=== PATIENT | female | born 1970 | race Caucasian/White ===

== ENCOUNTER 2024-03-08 20:11 | Emergency (ER) | payer SELFPAY ==
[~2024-03-08 20:11] MED LIST: Iopamidol-370 76% 500 ML MDV (1 ML CHARGE) ONE
[2024-03-08 21:42] LABS: #Basophils 0.07 10x3/uL (0.0-0.2); %Basophils 0.9 % (0.0-1.0); %Eosinophils 2.4 % (0.0-10.0); %Monocytes 6.6 % (0.0-10.0); %Neutrophils 44.8 % (42.0-75.0); Hematocrit 38.4 % (36.0-47.0); Hemoglobin 12.8 g/dL (12.0-16.0); Mean Corpuscular HGB CONC 33.3 g/dL (32.0-36.0); Mean Platelet Volume 9.7 fL (7.4-10.4); Platelet Count 219 10x3/uL (130-400); RBC Distribution Width 13.7 % (11.5-14.5); Red Blood Cell (RBC) Count 4.13 mill/uL (4.20-5.40)
[2024-03-08 22:00] LABS: ALT (SGPT) 9 U/L (8-55); AST (SGOT) 12 U/L (5-34); Albumin 4.1 g/dL (3.5-5.0); Alkaline Phosphatase 63 U/L (40-110); Anion Gap 11 mmol/L (10-20); BUN (Urea Nitrogen) 19 mg/dL (9.8-20.1); Bilirubin, Total 0.4 mg/dL (0.2-1.2); Calc. Creatinine Clearance 0 mL/min (70-130); Calcium 9.2 mg/dL (7.8-10.44); Carbon Dioxide 27 mmol/L (22-29); Chloride 105 mmol/L (98-107); Estimated GFR 55; Globulin 3.4 g/dL (2.4-3.5); Glucose 94 mg/dL (70-105); Lipase 36 U/L (8-78); Potassium 3.8 mmol/L (3.5-5.1); Protein, Total 7.5 g/dL (6.0-8.3); Sodium 139 mmol/L (136-145)
[2024-03-08 22:11] LABS: Bacteria/HPF None Seen HPF (None Seen); Bilirubin Negative (Negative); Blood, Urine Negative (Negative); CAUTI Indications for Culture Dysuria,urgency,freq; Clarity Clear (Clear); Glucose, Urine (Dipstick) Normal (Negative); Ketone, Urine Negative (Negative); Leukocyte Negative Leu/uL (Negative); Nitrite Negative (Negative); Protein, Urine (Dipstick) Negative (Neg-Trace); RBC/HPF 0-3 HPF (0-3); Specific Gravity, Urine 1.011 (1.002-1.036); Squamous Epithelial 0-3 HPF (0-3); Urobilinogen Normal mg/dL (Less than 2); WBC/HPF 0-3 HPF (0-3); pH, Urine 6.5 (5.0-9.0)
[2024-03-08 22:23] LABS: Urine Culture Reflex No No
[2024-03-08] MEDS ORDERED: Ketorolac Tromethamine 30 MG (1 mL) VIAL ONE (23:42)
== END 2024-03-09 00:44 | disposition home or self-care (01) ==
LOC: ERS 20:11
DX: K59.00 Constipation, unspecified (principal); R10.9 Unspecified abdominal pain; J44.89 Other specified chronic obstructive pulmonary disease
CPT/HCPCS: 36415; 74177; 80053; 81001; 83690; 85025; 96374; J1885; Q9967

== ENCOUNTER 2024-03-18 11:58 | Emergency (ER) | payer SELFPAY ==
[2024-03-18 13:34] LABS: #Basophils 0.07 10x3/uL (0.0-0.2); %Eosinophils 2.2 % (0.0-10.0); %Lymphocytes 34.3 % (21.0-51.0); %Monocytes 4.9 % (0.0-10.0); %Neutrophils 57.3 % (42.0-75.0); Hematocrit 44.7 % (36.0-47.0); Hemoglobin 14.4 g/dL (12.0-16.0); Mean Corpuscular HGB CONC 32.2 g/dL (32.0-36.0); Mean Corpuscular Hemoglobin 30.8 pg (27.0-31.0); Mean Corpuscular Volume 95.5 fL (78.0-98.0); Mean Platelet Volume 9.5 fL (7.4-10.4); Platelet Count 233 10x3/uL (130-400); RBC Distribution Width 13.9 % (11.5-14.5); Red Blood Cell (RBC) Count 4.68 mill/uL (4.20-5.40)
[2024-03-18 13:55] LABS: Troponin I Less than 0.010 ng/mL (< 0.028)
[2024-03-18 13:57] LABS: Lipase 97 U/L (8-78)
[2024-03-18 14:00] LABS: Acetaminophen Less than 10 mcg/mL (Less than 10); Alcohol Less than 10.0 mg/dL (Less than 10); Salicylate Less than 8.0 mg/dL (Less than 8.0)
[2024-03-18 14:02] LABS: ALT (SGPT) 31 U/L (8-55); AST (SGOT) 16 U/L (5-34); Albumin 4.3 g/dL (3.5-5.0); Alkaline Phosphatase 75 U/L (40-110); Anion Gap 11 mmol/L (10-20); BUN (Urea Nitrogen) 11 mg/dL (9.8-20.1); Bilirubin, Total 0.9 mg/dL (0.2-1.2); Calc. Creatinine Clearance 0 mL/min (70-130); Calcium 9.9 mg/dL (7.8-10.44); Carbon Dioxide 31 mmol/L (22-29); Chloride 105 mmol/L (98-107); Estimated GFR 88; Globulin 3.8 g/dL (2.4-3.5); Glucose 106 mg/dL (70-105); Potassium 3.9 mmol/L (3.5-5.1); Protein, Total 8.1 g/dL (6.0-8.3); Sodium 143 mmol/L (136-145)
[2024-03-18 14:53] LABS: Bacteria/HPF None Seen HPF (None Seen); Bilirubin Negative (Negative); Blood, Urine Negative (Negative); CAUTI Indications for Culture Pelvic or flank pain; Clarity Clear (Clear); Glucose, Urine (Dipstick) Normal (Negative); Ketone, Urine Negative (Negative); Leukocyte Negative Leu/uL (Negative); Nitrite Negative (Negative); Protein, Urine (Dipstick) Negative (Neg-Trace); RBC/HPF 0-3 HPF (0-3); Specific Gravity, Urine 1.004 (1.002-1.036); Squamous Epithelial None Seen HPF (0-3); Urobilinogen Normal mg/dL (Less than 2); WBC/HPF 0-3 HPF (0-3); pH, Urine 6.5 (5.0-9.0)
[2024-03-18 14:56] LABS: Urine Culture Reflex No No
[2024-03-18 15:00] LABS: Amphetamine Not Detected (NotDetected); Barbiturates Screen Not Detected (NotDetected); Benzodiazepine Screen Not Detected (NotDetected); Cocaine Metabolite Screen Not Detected (NotDetected); Methadone Not Detected (NotDetected); Methamphetamine Not Detected (NotDetected); Opiate Screen Not Detected (NotDetected); Oxycodone Screen Not Detected (NotDetected); Phencyclidine (PCP) Not Detected (NotDetected); THC/Cannabinoid Screen Not Detected (NotDetected); Tricyclic Screen Not Detected (NotDetected)
== END 2024-03-18 16:42 | disposition home or self-care (01) ==
LOC: ERS 11:58
DX: I27.20 Pulmonary hypertension, unspecified (principal); R06.00 Dyspnea, unspecified
CPT/HCPCS: 36415; 71046; 80053; 80306; 80307; 81001; 83690; 84443; 84484; 85025; 87428; 93005

== ENCOUNTER 2024-03-18 19:47 | Inpatient (IN) | payer SELFPAY ==
[2024-03-18 23:37] LABS: #Basophils 0.08 10x3/uL (0.0-0.2); %Basophils 1.1 % (0.0-1.0); %Eosinophils 3.2 % (0.0-10.0); %Monocytes 6.8 % (0.0-10.0); %Neutrophils 36.6 % (42.0-75.0); Hematocrit 38.4 % (36.0-47.0); Hemoglobin 12.9 g/dL (12.0-16.0); Mean Corpuscular HGB CONC 33.6 g/dL (32.0-36.0); Mean Corpuscular Hemoglobin 31.5 pg (27.0-31.0); Mean Corpuscular Volume 93.9 fL (78.0-98.0); Mean Platelet Volume 9.5 fL (7.4-10.4); Platelet Count 221 10x3/uL (130-400); RBC Distribution Width 13.8 % (11.5-14.5); Red Blood Cell (RBC) Count 4.09 mill/uL (4.20-5.40)
[2024-03-19 00:02] LABS: Bilirubin Negative (Negative); Blood, Urine Negative (Negative); CAUTI Indications for Culture Pelvic or flank pain; Clarity Clear (Clear); Glucose, Urine (Dipstick) Normal (Negative); Ketone, Urine Negative (Negative); Leukocyte Negative Leu/uL (Negative); Nitrite Negative (Negative); Protein, Urine (Dipstick) Negative (Neg-Trace); RBC/HPF 0-3 HPF (0-3); Specific Gravity, Urine 1.007 (1.002-1.036); Squamous Epithelial None Seen HPF (0-3); WBC/HPF 0-3 HPF (0-3); pH, Urine 6.5 (5.0-9.0)
[2024-03-19 00:03] LABS: Bacteria/HPF Rare-Few HPF (None Seen)
[2024-03-19 00:04] LABS: Urine Culture Reflex No No
[2024-03-19 00:05] LABS: ALT (SGPT) 25 U/L (8-55); AST (SGOT) 13 U/L (5-34); Albumin 3.8 g/dL (3.5-5.0); Alkaline Phosphatase 73 U/L (40-110); Anion Gap 13 mmol/L (10-20); BUN (Urea Nitrogen) 14 mg/dL (9.8-20.1); Bilirubin, Total 0.4 mg/dL (0.2-1.2); Calc. Creatinine Clearance 0 mL/min (70-130); Calcium 9.3 mg/dL (7.8-10.44); Carbon Dioxide 30 mmol/L (22-29); Chloride 104 mmol/L (98-107); Estimated GFR 82; Globulin 3.5 g/dL (2.4-3.5); Glucose 99 mg/dL (70-105); Protein, Total 7.3 g/dL (6.0-8.3); Sodium 143 mmol/L (136-145)
[2024-03-19 00:08] LABS: Troponin I Less than 0.010 ng/mL (< 0.028)
[2024-03-19] MEDS ORDERED: Ondansetron PF 4 MG/2 ML Vial ONE (00:17)
[2024-03-19] MEDS ORDERED: Morphine 4 MG/ML VIAL ONE ×2 (00:17→03:15)
[2024-03-19] MEDS ORDERED: Enoxaparin 80 MG (0.8 mL) SYRINGE ONE (01:23)
[2024-03-19 02:31] LABS: INR-International Normal Ratio 1.7; PTT 32.4 sec (22.9-36.1); Prothrombin Time 19.7 sec (12.0-14.7)
[2024-03-19] MEDS ORDERED: Ondansetron ODT 4 MG TAB PO PRN (03:37)
[2024-03-19] MEDS ORDERED: Senokot S 8.6-50 MG TAB PO PRN (03:37)
[2024-03-19] MEDS ORDERED: Bisacodyl 5 MG TAB PO PRN (03:37)
[2024-03-19] MEDS ORDERED: Ipratropium/Albuterol 3 ML NEB NEB PRN (03:42)
[2024-03-19 08:05] VITALS: BMI 24.6
[2024-03-19] MEDS ORDERED: Ibuprofen 200 MG TAB ONE (09:34)
[2024-03-19 09:36] LABS: INR-International Normal Ratio 1.2; PTT 35.7 sec (22.9-36.1); Prothrombin Time 15.4 sec (12.0-14.7)
[2024-03-19] MEDS ORDERED: Enoxaparin 100 MG (1 mL) SYRINGE ONE (09:38)
[2024-03-19 09:46] LABS: D-Dimer Test Less than 0.27 mcg/mL (0.27-0.43)
[2024-03-19] MEDS: Ibuprofen 200 MG TAB PO SCH (09:46)
[2024-03-19] MEDS: Enoxaparin 100 MG (1 mL) SYRINGE SC SCH (09:46)
[2024-03-19] MEDS: Sodium Chloride 0.9% 1,000 ML IV SCH (09:48)
[2024-03-19 11:49] LABS: HBCM Index 0.16 S/CO (0-0.79); HBsAg Index 0.26 S/CO (0-0.99); Hep A IgM AB NONREACTIVE (NonReactive); Hep A IgM S/CO 0.13 S/CO (0-0.79); Hep B Surf Ag NONREACTIVE S/CO (NonReactive); Hep C IgG Ab NONREACTIVE S/CO (NonReactive); Hep C Index 0.07 S/CO (0-0.79); Hepatitis B Core IgM Abs NONREACTIVE S/CO (NonReactive)
[2024-03-19] MEDS ORDERED: Acetaminophen 500 MG TAB ONE (12:22)
[2024-03-19] MEDS: Acetaminophen 325 MG TAB PO PRN (12:28)
[2024-03-19 13:35] LABS: Cardiolipin IgA Ab 3.6 APL-U/mL (<14 Negative); Cardiolipin IgG Ab 1.6 GPL-U/mL (<10 Negative); Cardiolipin IgM Ab 1.1 MPL-U/mL (<10 Negative); EliA APS New Method **** NEW METHOD ****
[2024-03-19] MEDS: Sildenafil Citrate 20 MG TAB PO SCH (17:15)
[2024-03-19] MEDS: Divalproex Sodium 250 MG (DR) TAB PO SCH (20:25)
[2024-03-19] MEDS: Ziprasidone 20 MG CAP PO SCH (20:26)
[2024-03-19] MEDS: Famotidine 20 MG TAB PO SCH (20:27)
[2024-03-20 04:03] LABS: #Basophils 0.07 10x3/uL (0.0-0.2); %Basophils 1.3 % (0.0-1.0); %Eosinophils 3.5 % (0.0-10.0); Hematocrit 40.6 % (36.0-47.0); Hemoglobin 12.9 g/dL (12.0-16.0); Mean Corpuscular HGB CONC 31.8 g/dL (32.0-36.0); Mean Corpuscular Hemoglobin 31.2 pg (27.0-31.0); Mean Corpuscular Volume 98.3 fL (78.0-98.0); Mean Platelet Volume 9.6 fL (7.4-10.4); Platelet Count 181 10x3/uL (130-400); RBC Distribution Width 13.7 % (11.5-14.5); Red Blood Cell (RBC) Count 4.13 mill/uL (4.20-5.40)
[2024-03-20 04:05] LABS: ALT (SGPT) 21 U/L (8-55); AST (SGOT) 11 U/L (5-34); Albumin 3.5 g/dL (3.5-5.0); Alkaline Phosphatase 66 U/L (40-110); Anion Gap 13 mmol/L (10-20); BUN (Urea Nitrogen) 17 mg/dL (9.8-20.1); Bilirubin, Total 0.5 mg/dL (0.2-1.2); Calc. Creatinine Clearance 87 mL/min (70-130); Calcium 9.4 mg/dL (7.8-10.44); Carbon Dioxide 28 mmol/L (22-29); Chloride 107 mmol/L (98-107); Estimated GFR 67; Globulin 3.1 g/dL (2.4-3.5); Glucose 93 mg/dL (70-105); Potassium 4.8 mmol/L (3.5-5.1); Protein, Total 6.6 g/dL (6.0-8.3); Sodium 143 mmol/L (136-145)
[2024-03-20] MEDS: Loratadine 10 MG TAB PO SCH (09:04)
[2024-03-20] MEDS: FLU (Fluarix Triv) TS24-25(6MOS UP)/PF 45 MCG/0.5 ML Syringe IM ONE (09:10)
[2024-03-20] MEDS: Loperamide HCl 2 MG CAP PO PRN (11:02)
[2024-03-20 13:35] VITALS: BMI 24.6
[2024-03-20] MEDS: Sertraline 100 MG TAB PO SCH (21:58)
[2024-03-20] MEDS: Enoxaparin 80 MG (0.8 mL) SYRINGE SC SCH (21:59)
[2024-03-20] MEDS: Acetaminophen 500 MG TAB PO PRN (22:18)
[2024-03-21 05:52] LABS: #Basophils 0.05 10x3/uL (0.0-0.2); %Basophils 0.9 % (0.0-1.0); %Eosinophils 4.2 % (0.0-10.0); %Lymphocytes 34.4 % (21.0-51.0); %Neutrophils 51.3 % (42.0-75.0); Hematocrit 38.9 % (36.0-47.0); Hemoglobin 12.5 g/dL (12.0-16.0); Mean Corpuscular HGB CONC 32.1 g/dL (32.0-36.0); Mean Corpuscular Hemoglobin 31.2 pg (27.0-31.0); Mean Platelet Volume 9.2 fL (7.4-10.4); Platelet Count 178 10x3/uL (130-400); RBC Distribution Width 13.7 % (11.5-14.5); Red Blood Cell (RBC) Count 4.01 mill/uL (4.20-5.40)
[2024-03-21 06:44] LABS: ALT (SGPT) 15 U/L (8-55); AST (SGOT) 11 U/L (5-34); Albumin 3.3 g/dL (3.5-5.0); Alkaline Phosphatase 56 U/L (40-110); Anion Gap 13 mmol/L (10-20); BUN (Urea Nitrogen) 19 mg/dL (9.8-20.1); Bilirubin, Total 0.5 mg/dL (0.2-1.2); Calc. Creatinine Clearance 94 mL/min (70-130); Calcium 9.2 mg/dL (7.8-10.44); Carbon Dioxide 28 mmol/L (22-29); Chloride 104 mmol/L (98-107); Estimated GFR 73; Globulin 2.9 g/dL (2.4-3.5); Glucose 94 mg/dL (70-105); Potassium 4.7 mmol/L (3.5-5.1); Protein, Total 6.2 g/dL (6.0-8.3); Sodium 140 mmol/L (136-145)
[2024-03-21] MEDS ORDERED: Ketorolac Tromethamine 30 MG (1 mL) VIAL IVP SCH (15:30)
[2024-03-21] MEDS: Transdermal Patch Removal TOP SCH (21:28)
[2024-03-22 04:22] LABS: #Basophils 0.04 10x3/uL (0.0-0.2); %Basophils 0.8 % (0.0-1.0); %Eosinophils 4.1 % (0.0-10.0); %Lymphocytes 50.7 % (21.0-51.0); %Monocytes 9.7 % (0.0-10.0); %Neutrophils 34.7 % (42.0-75.0); Hematocrit 37.9 % (36.0-47.0); Hemoglobin 12.2 g/dL (12.0-16.0); Mean Corpuscular HGB CONC 32.2 g/dL (32.0-36.0); Mean Corpuscular Hemoglobin 30.3 pg (27.0-31.0); Mean Corpuscular Volume 94.3 fL (78.0-98.0); Mean Platelet Volume 9.8 fL (7.4-10.4); Platelet Count 174 10x3/uL (130-400); RBC Distribution Width 13.8 % (11.5-14.5); Red Blood Cell (RBC) Count 4.02 mill/uL (4.20-5.40)
[2024-03-22 04:37] LABS: ALT (SGPT) 15 U/L (8-55); AST (SGOT) 11 U/L (5-34); Albumin 3.3 g/dL (3.5-5.0); Alkaline Phosphatase 57 U/L (40-110); Anion Gap 11 mmol/L (10-20); BUN (Urea Nitrogen) 20 mg/dL (9.8-20.1); Bilirubin, Total 0.3 mg/dL (0.2-1.2); Calc. Creatinine Clearance 98 mL/min (70-130); Calcium 9.1 mg/dL (7.8-10.44); Carbon Dioxide 30 mmol/L (22-29); Chloride 103 mmol/L (98-107); Estimated GFR 76; Glucose 94 mg/dL (70-105); Potassium 4.4 mmol/L (3.5-5.1); Protein, Total 6.3 g/dL (6.0-8.3); Sodium 140 mmol/L (136-145)
[2024-03-22] MEDS: Lidocaine 4% Patch TD SCH (10:04)
[2024-03-22] MEDS: Sertraline 100 MG TAB PO SCH (10:04)
[2024-03-22 15:37] VITALS: BP 102/71; TEMP 98.6
[2024-03-22] MEDS ORDERED: Apixaban 5 MG TAB PO SCH (21:00)
== END 2024-03-22 17:00 | disposition home or self-care (01) | DRG 176 ==
LOC: ERS 19:47 → ERHOLD 03-19 03:27 → 2SW 03-19 16:57 → OBSVTOIN 03-21 18:05
PROVIDERS: ADMIT Family Medicine; ATTEND Family Medicine
DX: I26.99 Other pulmonary embolism without acute cor pulmonale (principal); D68.59 Other primary thrombophilia; J44.9 Chronic obstructive pulmonary disease, unspecified; F41.9 Anxiety disorder, unspecified; I51.9 Heart disease, unspecified; I27.20 Pulmonary hypertension, unspecified; F42.9 Obsessive-compulsive disorder, unspecified; F31.9 Bipolar disorder, unspecified; Z88.1 Allergy status to other antibiotic agents; Z88.8 Allergy status to other drugs, medicaments and biological substances; Z90.49 Acquired absence of other specified parts of digestive tract; Z87.891 Personal history of nicotine dependence
CPT/HCPCS: 36415; 71275; 76705; 80053; 80074; 83090; 83690; 83880; 85025; 85300; 85303; 85306; 85307; 85598; 85610; 85730; 86147; 90656; 93005; 93306; 96372; 96374; 96375; 96376; G0378; J1650; J2272; J2405; J7030; Q9967

== ENCOUNTER 2024-03-23 22:01 | Emergency (ER) | payer SELFPAY ==
[2024-03-23] MEDS ORDERED: Lorazepam 2 MG/ML VIAL ONE (22:43)
== END 2024-03-23 23:03 | disposition home or self-care (01) ==
LOC: ERS 22:01
DX: F41.1 Generalized anxiety disorder (principal); J44.9 Chronic obstructive pulmonary disease, unspecified; I27.20 Pulmonary hypertension, unspecified; Z87.891 Personal history of nicotine dependence
CPT/HCPCS: 93005; 96372; 99283; J2060